=== PATIENT | female | born 1945 | race African-American/Black ===

== ENCOUNTER 2020-08-31 11:28 | Emergency (ER) | payer MEDICARE, BC ==
[~2020-08-31] VITALS: Ht 167.6 cm; Wt 57.0 kg
[2020-08-31 12:15] VITALS: BP 124/72
[2020-08-31] MEDS ORDERED: IBUPROFEN 400MG TABLET PO ONE (12:45)
[2020-08-31] MEDS ORDERED: SULFAMETHOXAZOLE/TRIMETHOPRIM 800/160MG TABLET PO ONE (12:45)
[2020-08-31] MEDS ORDERED: LIDOCAINE HCL 1% 20ML VIAL (Pyxis) INJ INFIL ONE (12:45)
[2020-08-31] MEDS: TETANUS, DIPHTHERIA, PERTUSSIS VAC/PF 0.5ML (>7YR OLD) IM ONE ×2 (12:55→13:00)
[2020-08-31] MEDS: CEFTRIAXONE SODIUM 1 G/VIAL IM ONE ×2 (12:56→13:00)
== END 2020-08-31 13:04 | disposition home or self-care (01) ==
LOC: EDSEX 11:28 → ER 11:28
DX: L03.012 Cellulitis of left finger (principal); Z90.710 Acquired absence of both cervix and uterus; Z88.3 Allergy status to other anti-infective agents; Z88.8 Allergy status to other drugs, medicaments and biological substances; Z88.5 Allergy status to narcotic agent
CPT/HCPCS: 90715; 99283; J0696; J3490

== ENCOUNTER 2024-12-14 14:12 | Emergency (ER) | payer MEDICARE, BC ==
[~2024-12-14] VITALS: Ht 160 cm; Wt 56.0 kg
[2024-12-14 14:23] VITALS: BP 152/52; PULSE 78; RESP 18; TEMP 36.8; O2SAT 97
== END 2024-12-14 15:00 | disposition left against medical advice (07) ==
LOC: ER 14:12
DX: Z04.3 Encounter for examination and observation following other accident (principal); Z53.21 Procedure and treatment not carried out due to patient leaving prior to being seen by health care provider